=== PATIENT | male | born 1980 | race Caucasian/White ===

== ENCOUNTER 2017-03-12 08:40 | Emergency (ER) | payer OTHER | END 2017-03-12 10:00 | disposition home or self-care (01) | LOC: ER1 08:40 | DX: S93.401A Sprain of unspecified ligament of right ankle, initial encounter (principal); S50.01XA Contusion of right elbow, initial encounter; M70.31 Other bursitis of elbow, right elbow; X50.1XXA Overexertion from prolonged static or awkward postures, initial encounter; Y92.69 Other specified industrial and construction area as the place of occurrence of the external cause; Y99.0 Civilian activity done for income or pay | CPT/HCPCS: 73080; 73590; 73610; 73630; 99283 ==